=== PATIENT | female | born 1990 | race Caucasian/White ===

== ENCOUNTER 2020-01-31 16:54 | Inpatient (IN) | payer OTHER, SELFPAY ==
[2020-01-31] MEDS ORDERED: hydrALAZINE 20 MG/ML VIAL SLOW IVP PRN ×2 (17:19→17:22)
[2020-01-31] MEDS ORDERED: Promethazine HCl 25 MG/ML VIAL IM PRN (17:19)
[2020-01-31] MEDS ORDERED: Calcium Gluc 4.6 MEQ/10 ML (100 MG/ML) SLOW IVP PRN (17:19)
[2020-01-31] MEDS ORDERED: Ondansetron PF 4 MG/2 ML Vial IVP PRN (17:19)
[2020-01-31] MEDS ORDERED: Acetaminophen 500 MG TAB PO PRN (17:19)
[2020-01-31] MEDS ORDERED: hydrALAZINE 20 MG/ML VIAL ONE (17:20)
[2020-01-31] MEDS ORDERED: Labetalol HCl 100 MG/20 ML VIAL SLOW IVP PRN ×2 (17:22→21:08)
[2020-01-31] MEDS ORDERED: Magnesium Sulfate 20 GM/WATER 500 ML BAG IVPB SCH (17:30)
[2020-01-31] MEDS ORDERED: Magnesium Sulfate 20 gm/500 ml 20 GM/500 ML BAG IVPB SCH (17:30)
[2020-01-31] MEDS ORDERED: Betamet Acet/Betamet Na Ph 30 MG/5 ML VIAL ONE (17:41)
[2020-01-31] MEDS ORDERED: Labetalol HCl 100 MG/20 ML VIAL ONE (17:48)
--- NOTE | 2020-01-31 17:50 | PDOC.LDHP ---
Labor and Delivery H&P Chief complaint: other (Elevated BPs) HPI: 29 y/o at 26w1d, patient of Dr. Murry, presents from clinic for direct admission after having 200/120 in clinic. Denies COOK, RUQ pain, VB, LOF, ctx, or decreased FM. Is having new onset significant edema. No history of elevated BPs prior to this visit. ROS neg for HEENT, cv, pulm, gi, gu, neuro, psych, skin, musculoskeletal or constitutional symptoms other than mentioned above. OB History Details: 1 prior ectopic , tx with MTX Current complications: IUGR Past Medical History: Migraines Current medications: pre-mirela vitamins, other (Fioricet) Previous surgical history: none Allergies/Adverse Reactions: Allergies Allergy/AdvReac Type Severity Reaction Status Date / Time No Known Allergies Allergy Verified 01/31/20 18:03 Social history: none - Physical Exam Abnormal vital signs: Persistent severe range BPs General: NAD, resting Lungs: nonlabored breathing Abdomen: gravid Extremeties: pitting edema - Assessment 29 y/o at 26w1d with persistent severe range BPs, requiring treatment. growth at 3%ile with EFW of 708g on today's US in office. Dopplers wnl. - Plan Plan: admit to L&D -: 1. Severe Range BPs - Hydralazine and Labetalol ordered for BP control. Labs, urine ordered for PreE workup. 2. wellbeing - continuous monitoring, celestone for lung maturity, NICU consult ordered 3. Magnesium sulfate 4g/2g ordred for seizure prophylaxis 4. Will obtain consent for delivery, counseled that early delivery is likely but can hopefully be delayed. Continue to monitor closely.
[2020-01-31] MEDS ORDERED: Betamet Acet/Betamet Na Ph 30 MG/5 ML VIAL IM SCH (18:00)
[2020-01-31] MEDS: Labetalol HCl 100 MG/20 ML VIAL SLOW IVP SCH ×4 (18:30→21:05)
[2020-01-31 18:34] LABS: #Basophils 0.1 thou/uL (0.0-0.2); #Eosinphils 0.1 thou/uL (0.0-0.7); #Lymphocytes 2.6 thou/uL (1.20-3.40); #Monocytes 1.1 thou/uL (0.11-0.59); #Neutrophils 8.4 thou/uL (1.40-6.50); %Basophils 0.7 % (0.0-1.0); %Eosinophils 0.4 % (0.0-10.0); %Lymphocytes 21.2 % (21.0-51.0); %Monocytes 8.7 % (0.0-10.0); Hemoglobin 12.5 g/dL (12.0-16.0); Mean Corpuscular HGB CONC 34.6 g/dL (32.0-36.0); Mean Corpuscular Hemoglobin 30.8 pg (27.0-31.0); Mean Corpuscular Volume 88.9 fL (78.0-98.0); Mean Platelet Volume 8.6 fL (7.4-10.4); Platelet Count 220 thou/uL (130-400); RBC Distribution Width 14.2 % (11.5-14.5); Red Blood Cell (RBC) Count 4.05 mill/uL (4.20-5.40); White Blood Cell (WBC) Count 12.2 thou/uL (4.8-10.8)
[2020-01-31 18:54] LABS: Amphetamine Not Detected (NotDetected); Barbiturates Screen Not Detected (NotDetected); Benzodiazepine Screen Not Detected (NotDetected); Cocaine Metabolite Screen Not Detected (NotDetected); Medtox Reader # READER 4; Methadone Not Detected (NotDetected); Methamphetamine Not Detected (NotDetected); Opiate Screen Not Detected (NotDetected); Oxycodone Screen Not Detected (NotDetected); Phencyclidine (PCP) Not Detected (NotDetected); THC/Cannabinoid Screen Not Detected (NotDetected); Tricyclic Screen Not Detected (NotDetected)
[2020-01-31 18:55] LABS: Medtox Control Line Valid? VALID (VALID)
[2020-01-31 18:59] VITALS: BMI 30.7
[2020-01-31 19:07] LABS: Creatinine, Urine 50.83 mg/dL (47-110)
[2020-01-31 19:20] LABS: Syphilis Antibody Nonreactive (Nonreactive); Syphilis Antibody Index 0.05 S/CO (<1.00 Non-Reactive)
[2020-01-31 19:21] LABS: HBSAg Index 0.17 S/CO (0-0.99); Hep B Surf Ag Non-Reactive S/CO (NonReactive)
[2020-01-31 19:39] LABS: ALT (SGPT) 26 U/L (8-55); AST (SGOT) 28 U/L (5-34); Albumin 2.6 g/dL (3.5-5.0); Alkaline Phosphatase 81 U/L (40-110); Anion Gap 14 mmol/L (10-20); BUN (Urea Nitrogen) 13 mg/dL (7.0-18.7); Bilirubin, Total 0.2 mg/dL (0.2-1.2); Calc. Creatinine Clearance 156 mL/min (70-130); Calcium 8.8 mg/dL (7.8-10.44); Carbon Dioxide 21 mmol/L (22-29); Chloride 108 mmol/L (98-107); Estimated GFR-MDRD Greater than 90; Globulin 2.7 g/dL (2.4-3.5); Glucose 84 mg/dL (70-105); Potassium 3.5 mmol/L (3.5-5.1); Protein, Total 5.3 g/dL (6.0-8.3); Sodium 139 mmol/L (136-145)
--- NOTE | 2020-01-31 19:56 | PDOC.BPN ---
- Brief Progress Note Patient comfortable. EFM with normal baseline, minimal variability. BPs continue to be persistently severe range and require treatment. If we are unable to stabilize BPs, plan to deliver tonight. If able to stabilize, will plan to transfer to center with M for potential expectant management. Patient counseled and voiced understanding.
[2020-01-31] MEDS ORDERED: Labetalol HCl 100 MG/20 ML VIAL SLOW IVP SCH (20:13)
[2020-02-01] MEDS ORDERED: Labetalol 100 MG TAB PO SCH (09:00)
[2020-02-01 09:03] VITALS: BP 150/101
--- NOTE | 2020-02-02 07:58 | DIS ---
DATE OF ADMISSION: 01/31/2020 DATE OF DISCHARGE: 02/01/2020 This is a discharge summary and progress note. TIME OF SERVICE: 0915 hours. I took over the care of Ms. Stewart at 0800 hours on 01/31. Briefly, the patient is a 29-year-old 2, para 0, ectopic 1, at 26 weeks and 1 day by good criteria. She was seen at [facility] on 01/30 in the afternoon and noted to have severe range blood pressures. Ultrasound was consistent with asymmetric intrauterine growth restriction with estimated weight approximately 5th percentile. WILLIAN was within normal limits and Doppler umbilical artery waveforms and profile were within normal limits. The fetus noted to be cephalic. She was transferred over to Labor and Delivery at [facility]. On arrival to [facility], she had blood pressure systolic to 200s, diastolics to 100s. She was admitted and received IV magnesium sulfate 4 g load, 2 g/hour as well as IV labetalol. She received betamethasone at approximately 1900 hours on 01/30. The patient did not demonstrate any headaches, blurred vision, or scotoma, right upper quadrant pain. heart rate tracing was consistent with stated gestational age. Occasional variables. No evidence of late decelerations. No evidence of labor. On exam, the patient was noted to have mild edema, 2+ DTRs, and cervix is closed, long, and high. The patient's urine output during the night was between 30 and 50 mL/h. Laboratory was revealing for a [id number] ratio of 20, but otherwise normal creatinine, normal platelet count, normal CBC, normal liver enzymes. During the night, the patient continued to occasionally require IV labetalol over that period of time. In general, her blood pressures responded down to 150s to 160s systolic with diastolics in the 90s. In the morning, a decision was made that the patient required a higher level care because she seems obviously be trending towards a delivery of a growth restricted fetus. This sized at 25 weeks' gestation, which is above the prolonged capabilities of the NICU at [facility]. I initiated contract with Dr. Beatris Bah at [facility] and arranged for aerial transport to [facility]. We will continue the patient on magnesium. Discontinue the IV labetalol and initiated p.o. labetalol 100 p.o. t.i.d. with hydralazine p.r.n. for severe range blood pressures. The patient consented to the transfer, which is being arranged and should occur shortly. [id number] encounter time as well as coordination of transfer was greater than 30 minutes time. Job ID: [id number]
== END 2020-02-01 09:52 | disposition short-term general hospital (02) | DRG 833 ==
LOC: L&D/OP 16:54 → L&D 18:04
PROVIDERS: ADMIT Student in an Organized Health Care Education/Training Program; ATTEND Student in an Organized Health Care Education/Training Program
DX: O26.893 Other specified pregnancy related conditions, third trimester (principal); O99.353 Diseases of the nervous system complicating pregnancy, third trimester; G43.909 Migraine, unspecified, not intractable, without status migrainosus; R03.0 Elevated blood-pressure reading, without diagnosis of hypertension; O36.5930 Maternal care for other known or suspected poor fetal growth, third trimester, not applicable or unspecified; Z3A.26 26 weeks gestation of pregnancy
CPT/HCPCS: 36415; 51702; 80053; 80306; 82570; 84156; 85025; 86780; 86850; 86900; 86901; 87340; 99285; J0360; J0702; J3475